=== PATIENT | male | born 1985 | race Hispanic/Latino ===

== ENCOUNTER 2022-09-17 11:20 | Emergency (ER) | payer OTHER ==
--- NOTE | 2022-09-17 12:18 | RAD REPORT ---
EXAM DESCRIPTION: RAD - Shoulder Left 2 View - 09/17/2022 11:54 am CLINICAL HISTORY: Left shoulder pain FINDINGS: No fracture or dislocation is seen.
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
== END 2022-09-17 13:11 | disposition home or self-care (01) ==
LOC: ER 11:20
DX: S63.92XA Sprain of unspecified part of left wrist and hand, initial encounter (principal); M25.512 Pain in left shoulder
CPT/HCPCS: 70450; 72125; 99284